=== PATIENT | female | born 1995 | race Caucasian/White ===

== ENCOUNTER 2021-03-09 16:59 | Emergency (ER) | payer OTHER, SELFPAY ==
[2021-03-09 17:08] VITALS: BP 122/77; PULSE 132; RESP 18; TEMP 37.7; O2SAT 98
--- NOTE | 2021-03-09 17:35 | ED.URI ---
HPI - URI/Sore Throat General Chief Complaint: Upper Respiratory Infection Stated Complaint: CONGESTION/RUNNY NOSE/COUGH/FEVER Time Seen by Provider: 03/09/21 17:25 Source: patient and RN notes reviewed Mode of arrival: ambulatory Limitations: no limitations History of Present Illness HPI Narrative: Patient presents today with a 3-day history of nasal congestion, fever up to 100. She initially had a sore throat, but this has resolved. Last night she developed a dry cough. Patient is requesting a COVID-19 test, but has not had any known COVID-19 exposure. She had her second COVID-19 vaccine on 02/05/2021. She has taken 1 dose of ibuprofen, 1 dose of Mucinex, and a few doses of Afrin since onset of symptoms without much relief. Denies history of seasonal allergies or asthma. Denies nausea, vomiting, diarrhea, loss of taste or smell, ear pain. MD elicited complaint: fever, cough and nasal congestion Related Data Allergies Allergy/AdvReac Type Severity Reaction Status Date / Time No Known Allergies Allergy Verified 03/09/21 17:31 Review of Systems Review of Systems: Narrative: CONSTITUTIONAL: Denies body aches, chills, or sweats. + Fever EYES: Denies visual changes, redness, or discharge. ENT: Denies rhinorrhea, or otalgia.+ Congestion,+ throat?resolved CARDIOVASCULAR: Denies chest pain, palpitations, or edema. RESPIRATORY: Denies dyspnea.+ Cough GASTROINTESTINAL: Denies abdominal pain, nausea, vomiting, or diarrhea. GENITOURINARY: Denies dysuria or hematuria. SKIN: Denies rash, itching, or wounds. MUSCULOSKELETAL: Denies back pain, joint pain, or myalgia. NEUROLOGIC: Denies headache, numbness, tingling, or weakness. PSYCH: Denies depression or anxiety. [facility] Family History Family History Grandparent Diabetes mellitus Cerebrovascular accident Social History Social History Smoking status: Never smoker Alcohol intake: current Comments At time of signature, I have reviewed and agree with nursing past medical, surgical, social and family history unless otherwise noted. Please see nursing chart for further information. There is no relevant family history pertinent to the presenting complaint Exam Narrative: Exam Narrative: GENERAL: Well-appearing, well-nourished, and in no acute distress. HEAD: Normocephalic, atraumatic. EYES: EOMI. No redness or drainage. Conjunctivae normal. ENT: Mucous membranes pink and moist. Nares congested. Nasal turbinates are mildly edematous with clear drainage. TMs normal bilaterally. Throat normal. Uvula midline. NECK: Normal AROM. Supple. No lymphadenopathy. CHEST: No respiratory distress. Clear to auscultation. HEART: Regular rate and rhythm. No murmur appreciated. Normal peripheral pulses. EXTREMITIES: Normal range of motion. No edema. SKIN: Warm, dry, no rash. Capillary refill normal. Normal skin turgor. NEURO: No focal deficits. Alert and oriented x3. Gait steady. PSYCH: Normal affect. No signs of depression or anxiety. Course Vital Signs Vital signs: Vital Signs Temperature 99.9 F H 03/09/21 17:08 Pulse Rate 132 H 03/09/21 17:08 Respiratory Rate 18 03/09/21 17:08 Blood Pressure 122/77 03/09/21 17:08 Pulse Oximetry 98 03/09/21 17:08 Temperature 99.9 F H 03/09/21 17:08 Pulse Rate 132 H 03/09/21 17:08 Respiratory Rate 18 03/09/21 17:08 Blood Pressure 122/77 03/09/21 17:08 Pulse Oximetry 98 03/09/21 17:08 Reviewed. Pt has been instructed to follow up with her PCP regarding her elevated blood pressure today. MDM - URI/Sore Throat Differential Diagnosis Differential diagnosis: Likely upper respiratory infection, otitis media, sinusitis, viral infection, bronchitis and other (COVID-19, rhinitis, seasonal allergies) Lab Data Attestation: I reviewed the patient's lab results. Lab results narrative: Rapid COVID-19 test negative.
== END 2021-03-09 17:59 | disposition home or self-care (01) ==
PROVIDERS: Emergency Provider Nurse Practitioner
DX: J30.9 Allergic rhinitis, unspecified (principal); F41.9 Anxiety disorder, unspecified; F32.9 Major depressive disorder, single episode, unspecified
CPT/HCPCS: 87426; 99213; C9803; G0463